=== PATIENT | female | born 2000 | race Caucasian/White ===

== ENCOUNTER → 2019-03-18 13:39 | Outpatient (CLI) | payer MEDICAID, SELFPAY ==
--- NOTE | 2019-03-18 13:41 | US_ITS ---
US transvaginal HISTORY: Follow-up left ovarian cyst ITS.REASON: ovarian cyst f/u ORDERING PHYSICIAN: Maycol Pat MD PATIENT AGE: 18 years Comparison: None FINDINGS: There are no previous exams available at this institution for comparison UTERUS: The uterus measures 8 x 3.3 x 5.4 cm. Combined endometrial thickness is 5 mm. No uterine mass or abnormal fluid collection RIGHT OVARY: 3.9 x 2 cm containing follicles and a 1.8 cm cyst. LEFT OVARY: 3.5 x 1.7 cm with a few small follicles CUL-DE-SAC FLUID: No cul-de-sac fluid apparent OTHER FINDINGS: There is bilateral ovarian blood flow IMPRESSION: 1.8 x 1.4 cm right ovarian cyst otherwise negative pelvic ultrasound
== END ==
PROVIDERS: PCP Family Medicine; Visit Provider Obstetrics & Gynecology
DX: N83.209 Unspecified ovarian cyst, unspecified side (principal)
CPT/HCPCS: 76830

== ENCOUNTER → 2019-06-23 09:43 | Outpatient (CLI) | payer MEDICAID, SELFPAY ==
[2019-06-23 11:19] LABS: Thyroid Stimulating Hormone 1.27 uIU/ml (0.358-3.740)
[2019-06-24 21:16] LABS: Prolactin 22.3 ng/mL (4.8-23.3)
== END ==
PROVIDERS: Visit Provider Obstetrics & Gynecology
DX: N64.52 Nipple discharge (principal); R87.619 Unspecified abnormal cytological findings in specimens from cervix uteri
CPT/HCPCS: 36415; 84146; 84443